=== PATIENT | male | born 1945 | race Hispanic/Latino ===

== ENCOUNTER 2023-03-13 06:42 | Day surgery (SDC) | payer MEDICARE, OTHER ==
[~2023-03-13] VITALS: Ht 162.6 cm; Wt 76.0 kg
[~2023-03-13 06:42] MED LIST: ARICEPT10 MG PO; CELECOXIB200 MG PO; CLARITIN10 M2 PO; GABAPENTIN300 MG PO; IRON325 M1 PO; OSTERA TABLET1 EACH PO; OXYCODONE HCL5 MG PO; VIT C-ROSE HIP500 MG PO
--- NOTE | 2023-03-13 07:00 | NUR ---
PT ACCOMPANIED BY . IN GOOD SPIRITS. I EXERCISED MINISTRY OF PRESENCE PT TALKED OF PREPARATIONS AND HOPES FOR THIS PROCEDURE. PT PRIMARIILY FRISIAN SPEAKING. TRANSLATED CONVERSATION AND PRAYER. CONSENTED TO PRAYER. PRAYED FOR SUCCESFUL PROCEDURE AND ONGOING BLESSING.
[2023-03-13 07:13] VITALS: BP 137/68
[2023-03-13] MEDS ORDERED: GABAPENTIN300 MG PO (10:45)
[2023-03-13] MEDS ORDERED: XARELTO10 MG PO (10:45)
[2023-03-13] MEDS ORDERED: CEFUROXIME250 MG PO (10:45)
[2023-03-13] MEDS ORDERED: OXYCODONE HCL5 MG PO (10:45)
[2023-03-13] MEDS ORDERED: SENNA LAX8.6 MG PO (10:45)
[2023-03-13 11:30] VITALS: BP 122/61
--- NOTE | 2023-03-13 11:59 | NUR ---
03/13/23 1159 Serina Cheema 1056 PT TO PACU SLEEPING O2 VIA MASK AT 9L FOGGING NOTED IN MASK
--- NOTE | 2023-03-13 12:02 | NUR ---
[id number]: PT BACK FROM PACU TO DS RM 5 VIA STRETCHER, AWAKE AND ALERT. PT CONVERSING WITH Chan SMITH RN AND DENIES PAIN OR NAUSEA. PT PROVIDED WATER WITH NO ICE PER REQUEST. PT SPOUSE AT BEDSIDE ON ARRIVAL. ICE IN PLACE AND WILL PLACE CRYO CUFF THAT IS AT HOME ONCE DISCHARGED. CALL LIGHT WITHIN REACH.
[2023-03-13 12:40] VITALS: BP 126/61
--- NOTE | 2023-03-13 12:49 | NUR ---
[id number]: PT RESTING IN STRETCHER AWAKE WITH DAUGHTER AT BEDSIDE. PT ABLE TO MOVE LEGS SIDE TO SIDE BUT UNABLE TO MOVE TOES, STATES "FEELS HEAVY." PT DENIES PAIN IN LEFT KNEE. PT TOLERATES WATER AND LUNCH ORDERED AT THIS TIME. DAUGHTER REMAINS AT BEDSIDE, CALL LIGHT WITHIN REACH.
[2023-03-13 13:50] VITALS: BP 107/73
--- NOTE | 2023-03-13 14:48 | NUR ---
[id number]: PT RESTING IN BED AWAKE AND ALERT, TOLERATES LUNCH WITH NO NAUSEA. PT DAUGHTER STEPS OUT TO EAT LUNCH AND GET WALKER FROM CAR. THIS RN USES DEPARTMENT COORDINATOR FOR ASSESSMENT, PT RATES PAIN 8/10 IN LEFT KNEE; MEDICATED PER EMAR. [id number]: PT DAUGHTER BACK IN ROOM AT THIS TIME. PT STATES URGE TO VOID AND THIS RN AND PT DAUGHTER ASSIST PT TO BATHROOM WITH USE OF WALKER. PT AMBULATES WITH STEADY GAIT TO BATHROOM, DENIES DIZZINESS OR NAUSEA WITH POSITION CHANGES. PT ABLE TO VOID 275 MLS YELLOW URINE WITH NO PROBLEMS. PT BACK TO DS RM 5 IN BED IN ANTICIPATION FOR PHYSICAL THERAPY.
[2023-03-13 15:30] VITALS: BP 134/58
[2023-03-13 16:15] VITALS: BP 129/54
--- NOTE | 2023-03-13 16:43 | NUR ---
[id number]: PT TO MED SURG TO WORK WITH PHYSICAL THERAPY, PT DAUGHTER FOLLOWS WITH WC. [id number]: PT BACK FROM PHYSICAL THERAPY AND SAFE TO DC HOME AT THIS TIME. DR. SMITH CALLED WHO VERBALLY ORDERS PT MAY DC HOME AFTER IV ABX ARE GIVEN. PT DRESSES SELF WITH DAUGHTER IN ROOM TO ASSIST. ENCOURAGED TO OPEN CURTAIN WHEN FINISHED.
--- NOTE | 2023-03-13 17:02 | NUR ---
[id number]: PT DRESSED AND LAST DOSE OF IV ABX ADMINISTERED; SEE EMAR. VSS AND DC INSTRUCTIONS PRESENTED VERBALLY AND WRITTEN TO PT AND DAUGHTER. IV REMOVED WNL AND COBAN PRESSURE DRESSING PLACED AND ENCOURAGED TO REMOVE IN 15 MINUTES. PT UP TO BATHROOM WITH USE OF WALKER, STEADY GAIT. PT DC FROM DS RM 5 VIA WC TO DAUGHTER WAITING AT HOSPITAL ENTRANCE TO HOME. PT ENCOURAGED TO APPLY CRYO CUFF ONCE HOME.
--- NOTE | 2023-03-17 07:02 | OR ---
[facility] [address] [place], [place] [address] Signed DATE OF OPERATION: 03/13/2023 SURGEON: Georgia Cheema MD PREOPERATIVE DIAGNOSIS: Left knee DJD. POSTOPERATIVE DIAGNOSIS: Left knee DJD. PROCEDURE PERFORMED: Left total knee arthroplasty. COMMUNITY SERVICE REPRESENTATIVE: Susana Golden PA-C. Susana was present and critical for all portions of the procedure. ANESTHESIA: Spinal. BLOOD LOSS: 165 mL. TOURNIQUET TIME: Zero. IMPLANTS: [place] Triathlon size 5, 35 mm patella and a 10 poly. BRIEF HISTORY: Chris is a 77-year-old gentleman with painful arthritis in his knee. Nonoperative treatment had been unsuccessful and he had undergone a prior right total knee with good results. Risks and benefits of operative treatment were discussed with him and he elected to proceed. DESCRIPTION OF PROCEDURE: Once consent was obtained, he was taken to the operating room. After adequate anesthesia, he was placed on the operating room table on a hip bump. The leg was prepped and draped in a standard sterile fashion. The knee was approached through a standard anterior midline incision. This was carried through skin and subcutaneous Electronically Signed By: GEORGIA CHEEMA MD 03/17/23 0702 PATIENT NAME: CHRIS DAVIS OPERATIVE REPORT DATE OF : 43 REPORT #: [id number] PHYSICIAN: GEORGIA CHEEMA MD PCP: INÉS HIGGINBOTHAM PA-C REPORT IS CONFIDENTIAL AND NOT TO BE RELEASED WITHOUT AUTHORIZATION [facility] [address] [place], [place] [address] Signed tissue. A midvastus arthrotomy was performed. The MCL was elevated as a subperiosteal sleeve around the posteromedial corner. The infrapatellar fat pad was excised. The patella was quite big and we elected to go ahead and cut the patella at this point. The osteophytes were removed and the patella was cut and then a safety plate was placed over it. The osteophytes of the left side of the femur were then removed to allow better visualization and mobilization of the patella. Once this was accomplished, the navigation computer arrays were placed in the medial femoral condyle and the proximal tibia and the leg was registered with the computer. The fine anatomic points of the knee were then registered and the varus and valgus balancing was undertaken. He was quite imbalanced and it took a little bit of adjustment both external rotation and tibial varus to get equal ligamentous balancing. Once this was completed, the robot was brought in. The four straight cuts and the 2 angle cuts were made with care taken to protect the patellar tendon and MCL. The bony remnants were removed as were any osteophytes. He had a 10 degree flexion contracture at the start of the case and the posterior osteophytes were removed and posterior release was performed. The trials were then positioned with a 10 mm polyethylene. The knee was taken from full extension to 120 degrees of flexion with excellent stability and the patella tracked well. The patella was cut sized and drilled for a 35 mm patella. The distal femoral drill holes were made and the proximal tibia was finished using the keel punch. The components were then obtained and the tibia was impacted until it was fully flushed. The polyethylene was snapped into position and the femur was impacted. The knee was extended and loaded. The patella was clamped into position and the clamp was removed. The knee was taken through range of motion and found to be quite stable and the patella tracked perfectly. The wound was then copiously irrigated with a bottle of Surgiphor followed by normal saline. The On-Q pain pump was percutaneously placed into the adductor canal from the suprapatellar pouch. The arthrotomy was then closed using a combination of #2 FiberWire and #2 Stratafix. Subcutaneous tissue was closed with 0 Stratafix and the skin with 3-0 Stratafix, LiquiBand and Steri-Strips. The wound was dressed with an Aquacel Ag dressing, ABDs and Fabrizio wrap. He tolerated the procedure well. All sponge, needle, and instrument counts were correct. Georgia Cheema MD BA/MODL /[id number] Electronically Signed By: GEORGIA CHEEMA MD 03/17/23 0702 PATIENT NAME: CHRIS DAVIS OPERATIVE REPORT DATE OF : 43 REPORT #: [id number] PHYSICIAN: GEORGIA CHEEMA MD PCP: INÉS HIGGINBOTHAM PA-C REPORT IS CONFIDENTIAL AND NOT TO BE RELEASED WITHOUT AUTHORIZATION [facility] [address] [place] [id number] Signed Copies: ~ Electronically Signed By: GEORGIA CHEEMA MD 03/17/23 0702 PATIENT NAME: CHRIS DAVIS OPERATIVE REPORT DATE OF : 43 REPORT #: [id number] PHYSICIAN: GEORGIA CHEEMA MD PCP: INÉS HIGGINBOTHAM PA-C REPORT IS CONFIDENTIAL AND NOT TO BE RELEASED WITHOUT AUTHORIZATION
== END 2023-03-13 16:35 | disposition home or self-care (01) ==
LOC: DS 06:42
PROVIDERS: ATTEND Specialist
PROC: 3E0T3BZ Introduction of Anesthetic Agent into Peripheral Nerves and Plexi, Percutaneous Approach (ICD-10-PCS; 2023-03-13)
PROC: 0SRD0JZ Replacement of Left Knee Joint with Synthetic Substitute, Open Approach (ICD-10-PCS; principal; 2023-03-13 09:30)
DX: M17.12 Unilateral primary osteoarthritis, left knee (principal)
CPT/HCPCS: 01400; 64447; 64450; 76942; 97161; C1713; C1776; J0690; J1100; J1885; J2001; J2250; J2704; J2795; J3010; J7121